=== PATIENT | female | born 1945 ===

== ENCOUNTER 2018-01-01 08:36 | Day surgery (SDC) | payer MEDICARE ==
[2017-12-27 09:31] VITALS: BMI 35.9
[2018-01-01] MEDS ORDERED: ceFAZolin IV 1 gm in Dextrose 0 GM/0 ML BAG IVPB ONE (13:26)
[2018-01-01] MEDS ORDERED: Bupivacaine 0.25% 20 ML INJ IJ ONE (13:26)
[2018-01-01] MEDS ORDERED: Lidocaine/Epinephrine 1% 1:100000 10 ML IJ ONE (13:26)
[2018-01-01] MEDS ORDERED: Doxycycline 100 mg Inj ONE (13:36)
[2018-01-01] MEDS ORDERED: Lidocaine Hydrochloride 20 ML INJ ONE (13:41)
[2018-01-01] MEDS ORDERED: Propofol 10 mg/ml Inj (20 ML) ONE (13:47)
[2018-01-01] MEDS ORDERED: Midazolam 2 MG/2 ML VIAL ONE (13:47)
[2018-01-01] MEDS ORDERED: Oxycodone/Acetaminophen 5/325 mg Tab PO PRN (14:27)
[2018-01-01] MEDS ORDERED: HYDROmorphone 0.5 mg/0.5 ml ISec IVP PRN (14:34)
[2018-01-01] MEDS ORDERED: Lactated Ringer's 1,000 ML IV SCH (14:45)
[2018-01-01 15:31] VITALS: RESP 16; TEMP 97.4
[2018-01-01 16:30] VITALS: BP 116/59; PULSE 61; O2SAT 98
--- NOTE | 2018-01-01 22:17 | OP ---
Copied To: Anuj Campos MD Attending MD: Anuj Campos MD PROCEDURE DATE: 01/01/2018 PREOPERATIVE DIAGNOSIS: Right neck mass. POSTOPERATIVE DIAGNOSIS: Right neck mass. PROCEDURE: Wide and deep excision of right neck mass (4 cm). SURGEON: Anuj Campos MD ANESTHESIA: Local sedation. BLOOD LOSS: 40 mL. POSTOPERATIVE CONDITION: Stable. INDICATION FOR SURGERY: This is a 72-year-old female who presents with a mass over the right side of her neck. She will now undergo excisional removal. GROSS FINDINGS: There was a 4-cm mass in the neck. It was removed into the fascial layer. Several blood vessels were preserved during the procedure; however, one branch of the external jugular vein had to be repaired. DESCRIPTION OF PROCEDURE: The patient was taken to the operating room. IV sedation was administered and local anesthesia was infiltrated. An elliptical incision was made surrounding the mass right mid portion to the right neck. It was excised into fascia layer portion of sternocleidomastoid. Several blood vessels were reflected and one was actively bleeding and repaired with Prolene with blood flow confirmed by Doppler. After the mass was removed, the wound was irrigated with copious amounts of saline solution. Full-thickness tissue flaps were raised including muscle and fascia. Counter incisions were made. An advancement flap closer measuring 22 sq cm was performed using multiple layers of Monocryl, subcuticular Monocryl, and Dermabond. The patient tolerated the procedure well and returned to the recovery room in stable condition. Anuj Campos MD
== END 2018-01-01 16:10 | disposition home or self-care (01) ==
LOC: C.SDS 08:36
PROVIDERS: ATTEND Surgery
DX: D48.7 Neoplasm of uncertain behavior of other specified sites (principal); D17.0 Benign lipomatous neoplasm of skin and subcutaneous tissue of head, face and neck
CPT/HCPCS: 14041; 82948; 88304; J2250; J2704; J3010